=== PATIENT | female | born 1965 | race Asian ===

== ENCOUNTER 2019-04-12 03:50 | Emergency (ER) | payer OTHER ==
[~2019-04-12] VITALS: Ht 157.5 cm; Wt 102.1 kg
--- NOTE | 2019-04-12 03:53 | ED.ADGEN ---
Past History Past Medical History: Arthritis, GERD, Kidney Stones, UTI, Other Adult General Chief Complaint Chief Complaint ".. I ve been sick... for two three days.. I thought it might be a kidney stone.. but I had some diarrhea.. My grand kids.. have been sick.. but pain so bad tonight.. and the nausea. ...".. " We are here visiting friends at [facility].. we are from [place]..." HPI HPI Patient is a 53 year old female who presents with above hx and complaints right abd. and flank pain x 3 days. Patient describes pain is somewhat a kidney stone" like." Patient advises nothing has helped relieve the pain. Patient currently visiting from [place] friends at [facility]. Patient has had previous renal stones. Patient has been exposed to grandchildren have been sick. Patient denies any history of head food intake. Patient denies any history of immunosuppression. Patient describes pain as stabbing and severe at times starting in her right flank radiating to her groin. Patient denies any vaginal discharge. Patient has had previous urinary tract infections, but does not currently complain of any marked dysuria. 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 Review of Systems Review of Systems Constitutional: Denies fever or chills [] Eyes: Denies change in visual acuity, redness, or eye pain [] HENT: Denies nasal congestion or sore throat [] Respiratory: Denies cough or shortness of breath [] Cardiovascular: No additional information not addressed in HPI [] GI: Complaints of right flank abdominal pain, nausea, vomiting, and diarrhea . : Denies dysuria or hematuria [] Musculoskeletal: Complains of right flank back pain . Complaints of chronic lumbar sacral joint pain [] Integument: Denies rash or skin lesions [] Neurologic: Denies headache, focal weakness or sensory changes [] Endocrine: Denies polyuria or polydipsia [] All other systems were reviewed and found to be within normal limits, except as documented in this note. Family History Family History Noncontributory presentation. Current Medications Current Medications Current Medications Medications (Trade) Dose Ordered Sig/Deonte Start Time Stop Time Status Last Admin Dose Admin Ceftriaxone Sodium 1 gm/ Sodium Chloride 50 ml @ 100 mls/hr 1X ONCE 04/12/19 06:30 10/13/19 06:59 DC 04/12/19 07:07 100 MLS/HR Ceftriaxone Sodium (Rocephin) 1 gm STK-MED ONCE 04/12/19 07:01 04/12/19 07:01 DC Famotidine (Pepcid Vial) 20 mg 1X ONCE 04/12/19 05:00 04/12/19 05:01 DC 04/12/19 04:54 20 MG Info (Do NOT chart on this entry -- for MONITORING) 1 each PRN DAILY PRN 04/12/19 07:15 04/12/19 08:44 DC Iohexol (Omnipaque 300 Mg/ml) 75 ml 1X ONCE 04/12/19 07:30 04/12/19 07:31 DC Ketorolac Tromethamine (Toradol 30mg Vial) 30 mg 1X ONCE 04/12/19 05:00 04/12/19 05:01 DC 04/12/19 04:54 30 MG Lactated Ringer's 1,000 ml @ 1,000 mls/hr Q1H 04/12/19 05:00 04/12/19 05:59 DC 04/12/19 04:54 1,000 MLS/HR Morphine Sulfate (Morphine 10mg Syringe) 10 mg 1X ONCE 04/12/19 07:00 04/12/19 07:01 DC 04/12/19 07:10 10 MG Ondansetron HCl (Zofran) 8 mg 1X ONCE 04/12/19 05:00 04/12/19 05:01 DC 04/12/19 04:55 8 MG Sodium Chloride 50 ml @ As Directed STK-MED ONCE 04/12/19 07:00 04/12/19 07:01 DC Allergies Allergies Allergies Coded Allergies Type Severity Reaction Last Updated Verified Sulfa (Sulfonamide Antibiotics) Allergy Unknown 04/12/19 Yes doxycycline Allergy Unknown 04/12/19 Yes prochlorperazine Allergy Unknown 04/12/19 Yes Physical Exam Physical Exam Constitutional: in acute distress, non-toxic appearance. [] HENT: Normocephalic, atraumatic, bilateral external ears normal, oropharynx dry, no oral exudates, nose normal. [] Eyes: PERRLA, EOMI, conjunctiva normal, no discharge. [] Glasses Neck: Normal range of motion, no tenderness, supple, no stridor. [] Cardiovascular: Tachycardia Heart rate regular rhythm, no murmur [] Lungs & Thorax: Bilateral breath sounds equal at apex on auscultation [] Abdomen: Bowel sounds normal, soft, right mid abdomen and upper pelvic tenderness, marked right flank pain particularly on percussion ,no masses, no pulsatile masses. [] Obese. Skin: Warm, dry, no erythema, no rash. [] Back: No tenderness, right flank CVA tenderness. [] Extremities: No tenderness, no cyanosis, no clubbing, ROM intact, no edema. []Mild psoas sign on right. Neurologic: Alert and oriented X 3, normal motor function, normal sensory function, no focal deficits noted. [] Psychologic: Affect anxious, judgement normal, mood normal. [] Current Patient Data Vital Signs Vital Signs Date Time Temp Pulse Resp B/P (MAP) Pulse Ox O2 Delivery O2 Flow Rate FiO2 04/12/19 04:39 97.9 84 20 94 Room Air Lab Results Laboratory Tests Test 04/12/19 03:55 04/12/19 05:00 04/12/19 05:55 Urine Collection Type Unknown Urine Color Yellow Urine Clarity Hazy Urine pH 7.0 Urine Specific [place] 1.020 Urine Protein Neg (NEG-TRACE) Urine Glucose (UA) Neg mg/dL (NEG) Urine Ketones (Stick) Neg mg/dL (NEG) Urine Blood Neg (NEG) Urine Nitrite Neg (NEG) Urine Bilirubin Neg (NEG) Urine Urobilinogen Dipstick 0.2 mg/dL (0.2 mg/dL) Urine Leukocyte Esterase Trace (NEG) Urine RBC Occ /HPF (0-2) Urine WBC 5-10 /HPF (0-4) Urine Squamous Epithelial Cells Few /LPF Urine Transitional Epithelial Cells Occ /LPF Urine Bacteria Mod /HPF (0-FEW) Urine Mucus Slight /LPF Urine Opiates Screen Neg (NEG) Urine Methadone Screen Neg (NEG) Urine Barbiturates Neg (NEG) Urine Phencyclidine Screen Neg (NEG) Urine Amphetamine/Methamphetamine Neg (NEG) Urine Benzodiazepines Screen Neg (NEG) Urine Cocaine Screen Neg (NEG) Urine Cannabinoids Screen Neg (NEG) Urine Ethyl Alcohol Neg (NEG) White Blood Count 9.2 x10^3/uL (4.0-11.0) Red Blood Count 5.05 x10^6/uL (3.50-5.40) Hemoglobin 14.9 g/dL (12.0-15.5) Hematocrit 45.1 % (36.0-47.0) Mean Corpuscular Volume 89 fL (79-100) Mean Corpuscular Hemoglobin 30 pg (25-35) Mean Corpuscular Hemoglobin Concent 33 g/dL (31-37) Red Cell Distribution Width 14.0 % (11.5-14.5) Platelet Count 202 x10^3/uL (140-400) Neutrophils (%) (Auto) 82 % (31-73) H Lymphocytes (%) (Auto) 12 % (24-48) L Monocytes (%) (Auto) 4 % (0-9) Eosinophils (%) (Auto) 1 % (0-3) Basophils (%) (Auto) 1 % (0-3) Neutrophils # (Auto) 7.6 x10^3uL (1.8-7.7) Lymphocytes # (Auto) 1.1 x10^3/uL (1.0-4.8) Monocytes # (Auto) 0.4 x10^3/uL (0.0-1.1) Eosinophils # (Auto) 0.1 x10^3/uL (0.0-0.7) Basophils # (Auto) 0.1 x10^3/uL (0.0-0.2) Maternal Serum HCG Beta Subunit 3 mIU/mL (0-6) Sodium Level 140 mmol/L (136-145) Potassium Level 3.9 mmol/L (3.5-5.1) Chloride Level 102 mmol/L (98-107) Carbon Dioxide Level 27 mmol/L (21-32) Anion Gap 11 (6-14) Blood Urea Nitrogen 20 mg/dL (7-20) Creatinine 0.8 mg/dL (0.6-1.0) Estimated GFR (Cockcroft-Gault) 74.7 Glucose Level 144 mg/dL (70-99) H Calcium Level 8.6 mg/dL (8.5-10.1) Total Bilirubin 0.8 mg/dL (0.2-1.0) Direct Bilirubin 0.1 mg/dL (0.0-0.2) Aspartate Amino Transferase (AST) 22 U/L (15-37) Alanine Aminotransferase (ALT) 32 U/L (14-59) Alkaline Phosphatase 91 U/L (46-116) Total Protein 7.7 g/dL (6.4-8.2) Albumin 3.7 g/dL (3.4-5.0) Amylase Level 48 U/L (25-115) Lipase 108 U/L (73-393) Prothrombin Time 10.5 SEC (9.4-11.4) Prothrombin Time INR 1.0 (0.9-1.1) Activated Partial Thromboplast Time 25 SEC (23-33) EKG EKG [] Radiology/Procedures Radiology/Procedures Contrast CT deferred reference shellfish allergy. [][address] [address] IMAGING REPORT Signed PATIENT: ISSAC BULLOCK RACCOUNT: [id number] : 1965 LOCATION: ER AGE: 53 SEX: F EXAM STATUS: REG ER ORD. PHYSICIAN: MACO HOOD MD REASON: PAIN PROCEDURE: CT ABDOMEN PELVIS WO CONTRAST CT ABDOMEN PELVIS WO CONTRAST INDICATION: Abdominal pain EXAM: Noncontrast CT of the abdomen and pelvis. Coronal and sagittal reformatted images were performed. PQRS compliance statement: One or more of the following individualized dose reduction techniques were utilized for this examination: 1. Automated exposure control 2. Adjustment of the mA and/or kV according to patient size 3. Use of iterative reconstruction technique COMPARISON: None FINDINGS: No free air, free fluid, or fluid collection. Lower chest: The visualized lower lungs are aerated. No pleural or pericardial effusion. ABDOMEN: Liver: Diffuse hepatic steatosis. Gallbladder and biliary: Normal gallbladder without radiopaque stone. Normal caliber bile ducts. Spleen: Normal spleen. Pancreas: The noncontrast pancreas is homogeneous in attenuation without peripancreatic inflammatory changes. Adrenal glands: Normal adrenal glands. Kidneys and ureters: No opaque urinary calculi. Normal kidneys and ureters. GI tract: The stomach contains debris. Multiple fluid-filled but nondilated loops of small bowel. Areas of fluid throughout the proximal colon. Normal appendix. Vascular structures: Normal caliber abdominal aorta. Lymph nodes: No lymphadenopathy in the abdomen or pelvis. PELVIS: Genitourinary system: Normal bladder. Uterus is present. SKELETAL STRUCTURES AND SOFT TISSUES: No fracture or destructive lesion in the visualized skeleton. IMPRESSION: Multiple fluid-filled but nondilated loops of small bowel, nonspecific but can be seen with enteritis. Fluid also noted throughout the proximal colon, which can be seen with a diarrheal process. Diffuse hepatic steatosis. Electronically signed by: Hema Maier MD (04/12/2019 7:36 AM) [facility] DICTATED AND SIGNED BY: HEMA MAIER MD DATE: 04/12/19735 CC: MACO HOOD MD; PCP,NO ~ Signed PATIENT: ISSAC BULLOCKCOUNT: [id number] : 1965 LOCATION: ER AGE: 53 SEX: F EXAM STATUS: REG ER ORD. PHYSICIAN: MACO HOOD MD REASON: Right abdominal and right flank pain. Hx kidney stones PROCEDURE: ACUTE ABDOMEN SERIES ACUTE ABDOMEN SERIES INDICATION: Right abdominal and flank pain. COMPARISON STUDY: None. FINDINGS: Lungs: Normal lung volume. No pulmonary mass or consolidation. The tracheobronchial tree and hilar structures are normal. Pleura: No pleural effusion or pneumothorax. Heart and Mediastinum: The cardiomediastinal silhouette is normal. The great vessels of the thorax are normal. Abdomen: Nonobstructive bowel gas pattern. No free air. Pelvic phleboliths. Bones and Soft Tissues: The bones and soft tissues are within normal limits. IMPRESSION: Nonobstructive bowel gas pattern. No acute cardiopulmonary process. Electronically signed by: Hema Maier MD (04/12/2019 8:03 AM) [facility] DICTATED AND SIGNED BY: HEMA MAIER MD DATE: 04/12/19802 CC: MACO HOOD MD; PCP,NO ~ Course & Med Decision Making Course & Med Decision Making Pertinent Labs and Imaging studies reviewed. (See chart for details) Patient to stay on a clear fluid diet only for the next 48 hours. No solids or milk products. Must allow bowel rest. Take Tylenol and ibuprofen for pain. Patient take Zofran 8 mg up 4 times a day for active nausea and vomiting. Patient to take Keflex 500 mg 3 times a day for UTI. If persistent abdomen pain nausea and vomiting and diarrhea after 24 hours would start Flagyl 500 mg 3 times a day. Must follow-up primary care. Return if any concerns. May take Vicoprofen up 4 times a day. [] Final Impression Final Impression 1. Rt. Flank and Rt. lower abdomen pain[] 2. Elevated glucose 144 3. Urinary tract infection 4. Gastroenteritis Dragon Disclaimer Dragon Disclaimer This electronic medical record was generated, in whole or in part, using a voice recognition dictation system. Dragon Disclaimer This chart was dictated in whole or in part using Voice Recognition software in a busy, high-work load, and often noisy Emergency Department environment. It may contain unintended and wholly unrecognized errors or omissions. MACO HOOD MD Apr 12, 2019 03:53
[2019-04-12 04:39] VITALS: BP 128/73
[2019-04-12] MEDS ORDERED: MORPHINE SULFATE 10 MG/ML SYRINGE. SQ ONE ×2 (05:00→07:00)
[2019-04-12] MEDS ORDERED: KETOROLAC 30 MG/ML VIAL. IVP ONE (05:00)
[2019-04-12] MEDS ORDERED: FAMOTIDINE 20 MG/2 ML VIAL IVP ONE (05:00)
[2019-04-12] MEDS ORDERED: IV RINGERS SOLUTION,LACTATED 1,000 ML IV SCH (05:00)
[2019-04-12] MEDS ORDERED: ONDANSETRON PF 4 MG/2 ML VIAL. IVP ONE (05:00)
[2019-04-12 05:27] LABS: BASO # 0.1 x10^3/uL (0.0-0.2); BASO % 1 % (0-3); EOS # 0.1 x10^3/uL (0.0-0.7); EOS % 1 % (0-3); HEMATOCRIT 45.1 % (36.0-47.0); HEMOGLOBIN 14.9 g/dL (12.0-15.5); LYMPH # 1.1 x10^3/uL (1.0-4.8); LYMPH % 12 % (24-48); MEAN CORPUSCULAR HEMOGLOBIN 30 pg (25-35); MEAN CORPUSCULAR HGB CONC 33 g/dL (31-37); MEAN CORPUSCULAR VOLUME 89 fL (79-100); MONO # 0.4 x10^3/uL (0.0-1.1); MONO % 4 % (0-9); NEUT # 7.6 x10^3uL (1.8-7.7); NEUT % 82 % (31-73); PLATELET COUNT 202 x10^3/uL (140-400); RED BLOOD COUNT 5.05 x10^6/uL (3.50-5.40); WHITE BLOOD COUNT 9.2 x10^3/uL (4.0-11.0)
[2019-04-12 05:31] LABS: AMPHETAMINE/METHAMPHETAMINE NEG (NEG); BARBITURATES NEG (NEG); BENZODIAZEPINES NEG (NEG); CANNABINOIDS NEG (NEG); COCAINE NEG (NEG); METHADONE NEG (NEG); OPIATES NEG (NEG); PHENCYCLIDINE NEG (NEG)
[2019-04-12 05:36] LABS: BILIRUBIN,URINE NEG (NEG); CLARITY,URINE HAZY; COLOR,URINE YELLOW; GLUCOSE,URINE NEG (NEG)
[2019-04-12 05:37] LABS: BACTERIA,URINE MOD /HPF (0-FEW); NITRITE,URINE NEG (NEG); RBC,URINE OCC /HPF (0-2); SQUAMOUS EPITHELIAL CELL,UR FEW /LPF; UROBILINOGEN,URINE 0.2 mg/dL (0.2 mg/dL)
[2019-04-12 05:37] LABS: ALBUMIN 3.7 g/dL (3.4-5.0); CALCIUM 8.6 mg/dL (8.5-10.1); CREATININE 0.8 mg/dL (0.6-1.0); DIRECT BILIRUBIN 0.1 mg/dL (0.0-0.2); GFR 74.7; POTASSIUM 3.9 mmol/L (3.5-5.1); TOTAL BILIRUBIN 0.8 mg/dL (0.2-1.0); TOTAL PROTEIN 7.7 g/dL (6.4-8.2)
[2019-04-12] MEDS ORDERED: IV NORMAL SALINE 50ML 50 ML ONE (07:00)
[2019-04-12] MEDS ORDERED: cefTRIAXone SODIUM 1 GM VIAL ONE (07:01)
[2019-04-12] MEDS ORDERED: CONTRAST GIVEN MC PRN (07:15)
[2019-04-12] MEDS ORDERED: IOHEXOL 300 MG/ML 75 ML VIAL. IV ONE (07:30)
--- NOTE | 2019-04-12 07:39 | RAD ---
CT ABDOMEN PELVIS WO CONTRAST INDICATION: Abdominal pain EXAM: Noncontrast CT of the abdomen and pelvis. Coronal and sagittal reformatted images were performed. PQRS compliance statement: One or more of the following individualized dose reduction techniques were utilized for this examination: 1. Automated exposure control 2. Adjustment of the mA and/or kV according to patient size 3. Use of iterative reconstruction technique COMPARISON: None FINDINGS: No free air, free fluid, or fluid collection. Lower chest: The visualized lower lungs are aerated. No pleural or pericardial effusion. ABDOMEN: Liver: Diffuse hepatic steatosis. Gallbladder and biliary: Normal gallbladder without radiopaque stone. Normal caliber bile ducts. Spleen: Normal spleen. Pancreas: The noncontrast pancreas is homogeneous in attenuation without peripancreatic inflammatory changes. Adrenal glands: Normal adrenal glands. Kidneys and ureters: No opaque urinary calculi. Normal kidneys and ureters. GI tract: The stomach contains debris. Multiple fluid-filled but nondilated loops of small bowel. Areas of fluid throughout the proximal colon. Normal appendix. Vascular structures: Normal caliber abdominal aorta. Lymph nodes: No lymphadenopathy in the abdomen or pelvis. PELVIS: Genitourinary system: Normal bladder. Uterus is present. SKELETAL STRUCTURES AND SOFT TISSUES: No fracture or destructive lesion in the visualized skeleton. IMPRESSION: Multiple fluid-filled but nondilated loops of small bowel, nonspecific but can be seen with enteritis. Fluid also noted throughout the proximal colon, which can be seen with a diarrheal process. Diffuse hepatic steatosis. Electronically signed by: Tesfaye Ferguson MD (04/12/2019 7:36 AM) [facility]
[2019-04-12] MEDS ORDERED: HYDR-1179 PO (07:55)
[2019-04-12] MEDS ORDERED: ONDA8TAB9 PO (07:55)
[2019-04-12] MEDS ORDERED: METR500T PO (07:55)
[2019-04-12] MEDS ORDERED: CEPH-264 PO (07:55)
--- NOTE | 2019-04-12 08:06 | RAD ---
ACUTE ABDOMEN SERIES INDICATION: Right abdominal and flank pain. COMPARISON STUDY: None. FINDINGS: Lungs: Normal lung volume. No pulmonary mass or consolidation. The tracheobronchial tree and hilar structures are normal. Pleura: No pleural effusion or pneumothorax. Heart and Mediastinum: The cardiomediastinal silhouette is normal. The great vessels of the thorax are normal. Abdomen: Nonobstructive bowel gas pattern. No free air. Pelvic phleboliths. Bones and Soft Tissues: The bones and soft tissues are within normal limits. IMPRESSION: Nonobstructive bowel gas pattern. No acute cardiopulmonary process. Electronically signed by: Tesfaye Ferguson MD (04/12/2019 8:03 AM) [facility]
== END 2019-04-12 08:43 | disposition home or self-care (01) ==
LOC: ER 03:50
DX: N39.0 Urinary tract infection, site not specified (principal); R73.9 Hyperglycemia, unspecified; K52.9 Noninfective gastroenteritis and colitis, unspecified; M19.90 Unspecified osteoarthritis, unspecified site; K21.9 Gastro-esophageal reflux disease without esophagitis; G89.29 Other chronic pain; M54.5 Low back pain; Z87.440 Personal history of urinary (tract) infections; Z87.442 Personal history of urinary calculi; Z88.2 Allergy status to sulfonamides; Z88.1 Allergy status to other antibiotic agents; Z88.8 Allergy status to other drugs, medicaments and biological substances
CPT/HCPCS: 36415; 74022; 74176; 80048; 80076; 80307; 81001; 82150; 83690; 84702; 85025; 85610; 85730; 87086; 96361; 96365; 96372; 96375; 99285; J0696; J1885; J2270; J2405; J3490; J7120